=== PATIENT | male | born 1995 | race African-American/Black ===

== ENCOUNTER 2022-08-10 19:56 | Emergency (ER) | payer OTHER ==
[~2022-08-10] VITALS: Ht 177.8 cm; Wt 66.0 kg
[2022-08-10 20:00] VITALS: O2SAT 98
[2022-08-10] MEDS ORDERED: ACETAMINOPHEN 325MG TABLET PO ONE (20:15)
[2022-08-10] MEDS ORDERED: METHOCARBAMOL 750MG TABLET PO SCH (20:15)
[2022-08-10] MEDS ORDERED: IBUP-2029 MT (21:20)
[2022-08-10] MEDS ORDERED: METH-653 MT (21:21)
[2022-08-10 21:48] VITALS: BP 143/96; PULSE 90; RESP 18; TEMP 98
== END 2022-08-10 21:57 | disposition home or self-care (01) ==
LOC: ER 19:56
DX: S13.4XXA Sprain of ligaments of cervical spine, initial encounter (principal); S33.5XXA Sprain of ligaments of lumbar spine, initial encounter; V49.49XA Driver injured in collision with other motor vehicles in traffic accident, initial encounter; Y93.89 Activity, other specified; Y92.89 Other specified places as the place of occurrence of the external cause; Y99.8 Other external cause status
CPT/HCPCS: 99284